=== PATIENT | male | born 1975 | race Caucasian/White ===

== ENCOUNTER 2021-09-05 07:53 | Emergency (ER) | payer OTHER ==
[~2021-09-05] VITALS: Ht 177.8 cm; Wt 94.0 kg
[2021-09-05 07:55] VITALS: BP 133/97
--- NOTE | 2021-09-05 08:01 | NUR ---
Patient ambulated to bed 11 with steady/even gait
--- NOTE | 2021-09-05 08:09 | NUR ---
46 y/o M BIB self from home c/o difficulty breathing, bilateral LE swelling and abdominal distention x 3 weeks. Patient states symptoms have not improved, recently prescribed Amoxicillin for pneumonia. States on day 3 of 7 day treatment. Patient reports 2/10, bloating/constant, non-radiating pain with diarrhea for the past two days. Abdomen round/firm/distended. Lung sounds CTA; SpO2 100% on room air. Last BM: this morning, diarrhea. Denies chest pain, fever, chills, dysuria, nausea, vomiting. +2 pitting edema to bilateral LE. States cough medication prior to arrival. Dexcom pump to [facility]. Bed locked in lowest postiion, side rails x 1. PMH: DM1, anxiety Meds: fetzima, levothyroxine, losartan, rosuvastatin, metformin, alprazolam, tamsulosin, venlafaxine, basaglar, novolog insulin NKDA
[2021-09-05] MEDS ORDERED: LEVALBUTEROL 1.25 MG/0.5 ML NEBU INH ONE (08:20)
[2021-09-05] MEDS ORDERED: predniSONE 20 MG TAB PO ONE (08:20)
[2021-09-05] MEDS ORDERED: IPRATROPIUM 0.02% 0.5 MG/2.5 ML NEBU INH ONE (08:20)
--- NOTE | 2021-09-05 08:30 | NUR ---
Lab at bedside
--- NOTE | 2021-09-05 08:30 | NUR ---
RT at bedside
[2021-09-05 08:44] LABS: BASOPHILS # (AUTO) 0.1 K/uL (0.00-0.22); BASOPHILS % (AUTO) 0.6 % (0.0-2.0); EOSINOPHILS # (AUTO) 0.2 K/uL (0-0.4); EOSINOPHILS % (AUTO) 2.4 % (0.0-4.0); HEMOGLOBIN 13.9 g/dL (12.0-18.0); LYMPHOCYTES # (AUTO) 1.9 K/uL (2.0-11.5); MEAN CORPUSCULAR HEMOGLOBIN 28 pg (27-31); MEAN CORPUSCULAR HGB CONC 32 g/dL (33-37); MEAN CORPUSCULAR VOLUME 87.8 fL (80-94); MONOCYTES # (AUTO) 0.9 K/uL (0.8-1.0); MONOCYTES % (AUTO) 8.9 % (1.7-9.3); NEUTROPHILS # (AUTO) 6.8 K/uL (1.8-7.7); NEUTROPHILS % (AUTO) 69.1 % (42.2-75.2); PLATELET COUNT (AUTO) 418 K/uL (140-450); RED CELL DISTRIBUTION WIDTH 14.9 % (11.6-13.7); WHITE BLOOD COUNT (AUTO) 9.9 K/uL (4.8-10.8)
[2021-09-05 09:07] LABS: ALBUMIN 3.5 g/dL (3.4-5.0); ASPARTATE AMINOTRANSFERASE 37 U/L (15-37); CARBON DIOXIDE 23.6 mmol/L (21-32); CHLORIDE 102 mmol/L (98-107); CREATININE 0.9 mg/dL (0.6-1.3); GFR ARICAN-AMERICAN 116 mL/min (>90); GLUCOSE 77 mg/dL (74-106); POTASSIUM 4.6 mmol/L (3.5-5.1); SODIUM SERUM 135 mmol/L (136-145); TOTAL BILIRUBIN 0.6 mg/dL (0.0-1.0); UREA NITROGEN, BLOOD 10 mg/dL (7-18)
--- NOTE | 2021-09-05 09:30 | NUR ---
Patient resting in position of comfort in high fowlers. athletic monitor in place. SpO2 99% on room air. Bed locked in lowest position, side rails x 1.
--- NOTE | 2021-09-05 09:35 | NUR ---
Dr. Nicholas is reevaluating patient at bedside
[2021-09-05] MEDS ORDERED: LOSA100T1 PO (10:35)
[2021-09-05] MEDS ORDERED: LEVO0.083 PO (10:35)
[2021-09-05] MEDS ORDERED: LEVO120C PO (10:35)
[2021-09-05] MEDS ORDERED: ALPR2TAB1 PO (10:35)
[2021-09-05] MEDS ORDERED: TAMS0.4C96 PO (10:35)
[2021-09-05] MEDS ORDERED: ROSU20TA1 PO (10:35)
[2021-09-05] MEDS ORDERED: INSU100I7 SQ (10:35)
[2021-09-05] MEDS ORDERED: METF-1253 PO (10:35)
[2021-09-05] MEDS ORDERED: VENL225T PO (10:35)
[2021-09-05] MEDS ORDERED: INSU100S45 SUBQ (10:35)
--- NOTE | 2021-09-05 11:29 | NUR ---
Dr. Nicholas is reevaluating pt at bedside
[2021-09-05] MEDS ORDERED: PRED20TA5 PO (11:34)
[2021-09-05] MEDS ORDERED: ALBU0.0912 INH (11:34)
--- NOTE | 2021-09-05 11:44 | NUR ---
Patient discharged with v/s stable. Written and verbal after care instructions given and explained. Patient alert, oriented and verbalized understanding of instructions. Ambulatory with steady gait. All questions addressed prior to discharge. ID band removed. Patient advised to follow up with PMD. Rx of Albuterol, Deltasone given. Patient educated on indication of medication including possible reaction and side effects. Opportunity to ask questions provided and answered.
[2021-09-05 11:47] VITALS: BP 126/79
== END 2021-09-05 11:44 | disposition home or self-care (01) ==
LOC: MED 07:53
DX: J40 Bronchitis, not specified as acute or chronic (principal); R06.02 Shortness of breath; F41.9 Anxiety disorder, unspecified; E10.9 Type 1 diabetes mellitus without complications; Z88.1 Allergy status to other antibiotic agents; Z79.899 Other long term (current) drug therapy; Z79.4 Long term (current) use of insulin
CPT/HCPCS: 36415; 71045; 80053; 84484; 85025; 85379; 93005; 94640; 99285; J7512; J7612; J7644